=== PATIENT | female | born 1995 | race Two or more races ===

== ENCOUNTER 2017-12-21 17:14 | Emergency (ER) | payer OTHER ==
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
[2017-12-21 20:30] VITALS: BP 119/64
== END 2017-12-21 20:28 | disposition home or self-care (01) ==
LOC: ER 17:14
PROC: 0HQ1XZZ Repair Face Skin, External Approach (ICD-10-PCS; principal; 2017-12-21)
DX: S01.81XA Laceration without foreign body of other part of head, initial encounter (principal); S10.91XA Abrasion of unspecified part of neck, initial encounter; S20.312A Abrasion of left front wall of thorax, initial encounter; V87.7XXA Person injured in collision between other specified motor vehicles (traffic), initial encounter; J45.909 Unspecified asthma, uncomplicated
CPT/HCPCS: 71046; 72050; 99283